=== PATIENT | female | born 1955 | race Caucasian/White ===

== ENCOUNTER → 2017-02-18 | Outpatient (CLI) | payer OTHER | LOC: FIMAGING 09:35 | PROVIDERS: ATTEND Family Medicine | DX: R21 Rash and other nonspecific skin eruption (principal) | CPT/HCPCS: G0204 ==

== ENCOUNTER 2017-05-01 08:52 | Day surgery (SDC) | payer OTHER ==
[2017-05-01] MEDS ORDERED: LIDOCAINE 1% 2 ML INJ ID PRN (09:21)
[2017-05-01] MEDS ORDERED: LR 1,000 ML IV ONE (09:21)
[2017-05-01 09:26] VITALS: PULSE 54; O2SAT 96
[2017-05-01] MEDS ORDERED: PROPOFOL/EMULSION 500 MG/50 ML BOTTLE IV ONE (09:42)
[2017-05-01] MEDS ORDERED: fentaNYL 100 MCG/2 ML INJ ONE (09:42)
[2017-05-01] MEDS ORDERED: LIDOCAINE 2% 100 MG/5 ML SYR ONE (09:42)
--- NOTE | 2017-05-01 09:46 | PDGENHP ---
History & Physical Chief Complaint: subpeithelial lesion History of Present Illness: 62 year old female presents for evalution of subepithelial lesion Pertinent Past, Social, Family History: PMHx: Unremarkable. SoHx: No cigs. Relevant Physical Exam: Heent: anicteric. CV: RRR +s1s2. Lungs: CTAB. Abd: soft, nt, + bs Cardiorespiratory Assessment: ASA 1
[2017-05-01] MEDS ORDERED: INDOMETHACIN 50 MG SUPP PR PRN (09:47)
[2017-05-01] MEDS ORDERED: NS 500 ML IV SCH (10:00)
[2017-05-01] MEDS ORDERED: ONDANSETRON 4 MG/2 ML VIAL IVP PRN (10:22)
[2017-05-01] MEDS ORDERED: NALOXONE HCL 0.4 MG/ML INJ IVP PRN (10:22)
[2017-05-01] MEDS ORDERED: ALBUTEROL 3 ML DEYVIAL IH PRN (10:22)
[2017-05-01] MEDS ORDERED: fentaNYL 100 MCG/2 ML INJ IVP PRN (10:22)
--- NOTE | 2017-05-01 10:22 | POSTANESTH ---
Post Anesthetic Evaluation Cardiovascular Status: Normal, Stable Respiratory Status: Normal, Stable Level of Consciousness/Mental Status: Mildly Sleepy, Arousable Pain Control: Adequate, Prn Tx Ordered Nausea/Vomiting Control: Adequate, Prn Tx Ordered Complications Possibly Related to Anesthesia: None Noted
--- NOTE | 2017-05-01 10:22 | PDANEPAE ---
ANE Past Medical History - Cardiovascular History Hx Hypertension: No Hx Arrhythmias: No Hx Chest Pain: No Hx Coronary Artery / Peripheral Vascular Disease: No Hx CHF / Valvular Disease: No Hx Palpitations: No - Pulmonary History Hx COPD: No Hx Asthma/Reactive Airway Disease: No Hx Recent Upper Respiratory Infection: No Hx Oxygen in Use at Home: No Hx Sleep Apnea: No Sleep Apnea Screening Result - Last Documented: Negative - Neurologic History Hx Cerebrovascular Accident: No Hx Seizures: No Hx Dementia: No - Endocrine History Hx Diabetes: No - Renal History Hx Renal Disorders: No - Liver History Hx Hepatic Disorders: No - Neurological & Psychiatric Hx Hx Neurological and Psychiatric Disorders: No - Cancer History Hx Cancer: Yes Cancer History Comment: basal cell skin Ca - Congenital Disorder History Hx Congenital Disorders: No - GI History Hx Gastrointestinal Disorders: No - Chronic Pain History Chronic Pain: No - Surgical History Prior Surgeries: carpal tunnel release. foot surgery. arthroscopy knees ANE Review of Systems Review of Systems: - Exercise capacity METS (RN): 5 METS ANE Patient History - Allergies Allergies/Adverse Reactions: No Known Allergies Allergy (Unverified 01/22/16 05:23) - NPO status NPO Since - Liquids (Date): 04/30/17 NPO Since - Liquids (Time): 20:30 NPO Since - Solids (Date): 04/30/17 NPO Since - Solids (Time): 20:30 - Smoking Hx Smoking Status: Never smoked - Family Anes Hx Family Hx Anesthesia Complications: none ANE Labs/Vital Signs - Vital Signs Blood Pressure: 137/77 Heart Rate: 54 Respiratory Rate: 18 O2 Sat (%): 96 Height: 162.56 cm Weight: 49.895 kg ANE Physical Exam - Airway Neck exam: FROM Mallampati Score: Class 2 Mouth exam: normal dental/mouth exam - Pulmonary Pulmonary: no respiratory distress - Cardiovascular Cardiovascular: regular rate and rhythym - ASA Status ASA Status: I ANE Anesthesia Plan Total IV Anesthesia: Yes Urgent/Emergent Case: Sudha montano completed preop but documented later for safe timely pt care
--- NOTE | 2017-05-01 10:48 | GIREPORT ---
[facility] - Endoscopy Department Patient Name: Brionna Huerta Procedure Date: 05/01/2017 9:31 AM Patient Type: Outpatient Attending MD/ ER Physician: Preet Parada MD Procedure: Upper EUS Indications: Gastric mucosal mass/polyp found on endoscopy, Submucosal tumor versus extrinsic mass found on endoscopy Providers: Preet Parada MD Medicines: Monitored Anesthesia Care Complications: No immediate complications. Estimated blood loss: None. Description of Procedure: After obtaining informed consent, the endoscope was passed under direct vision. Throughout the procedure, the patient's blood pressure, pulse, and oxygen saturations were monitored continuous ly. The was introduced through the mouth, and advanced to the second part of duodenum. The Endoscope was introduced through the mouth, and advanced to the second part of duodenum. The upper EUS was accomplished without difficulty. The patient tolerated the procedure well. Findings: Endoscopic Finding : The examined esophagus was normal. Patchy nodular mucosa was found in the gastric fundus and in the gastric body. Biopsies were rubin en with a cold forceps for histology. An approximate 20 mm subepithelial lesion was found in the gastric fundus/body. Biopsies were ta aline with a cold forceps for histology. The examined duodenum was normal. Endosonographic Finding : There was extrinsic compression in the fundus of the stomach at the site of the subepithelial le chelsie. Endosonographic examination showed this compression to be due to a normal-appearing spleen. Pancreatic parenchymal abnormalities were noted in the entire pancreas. These consisted of hyperechoic foci. There was no sign of significant endosonographic abnormality in the common bile duct and in the gallbladder. No lymphadenopathy seen. Estimated Blood Loss: Estimated blood loss: none. Post Op Diagnosis: - Normal esophagus. - Nodular mucosa in the gastric fundus and in the gastric body. Biopsie d. - A single submucosal papule (nodule) found in the stomach. Biopsied. - Normal examined duodenum. - Extrinsic compression was noted in the fundus of the stomach due to a normal-appearing spleen. - Pancreatic parenchymal abnormalities consisting of hyperechoic foci w ere noted in the entire pancreas. - There was no sign of significant pathology in the common bile duct an d in the gallbladder. - Etiolog? Subepithelial lesion is due to extrinsic compression from th e spleen. Recommendation: - Discharge patient to home (with escort). - Await path results. -Thank you for alowing me to particpate in the care of your patient. Attending Participation: I personally performed the entire procedure. Preet Parada MD Preet Parada MD 05/01/2017 10:48:01 AM Number of Addenda: 0 Note Initiated On: 05/01/2017 9:31 AM [email or web address]
[2017-05-01 11:07] VITALS: TEMP 97.2
[2017-05-01 13:22] VITALS: BP 134/85
[2017-05-01 13:23] VITALS: RESP 16
== END 2017-05-01 12:00 | disposition home or self-care (01) ==
LOC: FSGY 08:52
PROVIDERS: ATTEND Internal Medicine Gastroenterology
PROC: 0DJ08ZZ Inspection of Upper Intestinal Tract, Via Natural or Artificial Opening Endoscopic (ICD-10-PCS; principal; 2017-05-01 10:15)
PROC: 0DB68ZX Excision of Stomach, Via Natural or Artificial Opening Endoscopic, Diagnostic (ICD-10-PCS; principal; 2017-05-01 10:15)
DX: K31.89 Other diseases of stomach and duodenum (principal)
CPT/HCPCS: J2001; J2704; J3010

== ENCOUNTER → 2018-02-19 | Outpatient (CLI) | payer OTHER | LOC: FIMAGING 07:48 | PROVIDERS: ATTEND Family Medicine | DX: Z12.31 Encounter for screening mammogram for malignant neoplasm of breast (principal) ==

== ENCOUNTER → 2018-04-20 | Outpatient (CLI) | payer OTHER | LOC: BMCIMAGING 15:15 | PROVIDERS: ATTEND Family Medicine | DX: Z13.820 Encounter for screening for osteoporosis (principal); M81.0 Age-related osteoporosis without current pathological fracture ==

== ENCOUNTER → 2018-11-26 | Outpatient (CLI) | payer OTHER ==
[~2018-11-26] MED LIST: GADOBUTROL 10 ML VIAL IVP ONE
== END ==
LOC: FIMAGING 15:49
PROVIDERS: ATTEND Orthopaedic Surgery
DX: G95.89 Other specified diseases of spinal cord (principal); M51.36 Other intervertebral disc degeneration, lumbar region; M51.37 Other intervertebral disc degeneration, lumbosacral region; M47.896 Other spondylosis, lumbar region; M47.897 Other spondylosis, lumbosacral region
CPT/HCPCS: A9585